=== PATIENT | male | born 2000 | race Caucasian/White ===

== ENCOUNTER 2021-02-28 12:11 | Emergency (ER) | payer OTHER ==
[~2021-02-28 12:11] MED LIST: BACTROBAN OINT22 GM EXT; VIBRAMYCIN100 MG PO
[2021-02-28 14:38] LABS: HEMOGLOBIN 15.3 gm/dl (14.0-17.5); RED BLOOD COUNT 5.23 M/UL (4.20-5.50); WHITE BLOOD COUNT 13.3 K/UL (4.5-11.0)
[2021-02-28 15:04] LABS: BUN/CREATININE RATIO 12 (0-10)
== END 2021-02-28 16:00 | disposition home or self-care (01) ==
LOC: ER1 12:11
PROVIDERS: Physician Assistant
DX: S39.012A Strain of muscle, fascia and tendon of lower back, initial encounter (principal); S16.1XXA Strain of muscle, fascia and tendon at neck level, initial encounter; S29.012A Strain of muscle and tendon of back wall of thorax, initial encounter; S30.1XXA Contusion of abdominal wall, initial encounter; F17.290 Nicotine dependence, other tobacco product, uncomplicated; V49.40XA Driver injured in collision with unspecified motor vehicles in traffic accident, initial encounter; Y92.410 Unspecified street and highway as the place of occurrence of the external cause
CPT/HCPCS: 72125; 72128; 72131; 80053; 85025; 99284; Q9967